=== PATIENT | female | born 1960 | race Caucasian/White ===

== ENCOUNTER 2018-05-17 15:33 | Emergency (ER) | payer OTHER ==
[~2018-05-17] VITALS: Ht 152.4 cm; Wt 70.8 kg
[2018-05-17] MEDS ORDERED: NKM (15:42)
--- NOTE | 2018-05-17 15:47 | NUR ---
ED Nurse Note: Patient walked into ED patient was crossing the street today and fell down accidentally, patient reports falling down on her right side, right hand, patient reports strangling her right ankle, pain radiates to her right thigh, and right hand pain about 1 hour ago after the incident. patient denies head trauma or LOC. patient is alert awake x4, ambulatory with assist.
[2018-05-17] MEDS ORDERED: Bacitracin Oint UD TOPIC ONE (16:15)
[2018-05-17] MEDS ORDERED: Tetanus/Diptheria/Pertussis IM ONE (16:15)
[2018-05-17] MEDS: Tylenol #3 tab (300mg/30mg) ORAL ONE ×2 (16:15→16:36)
--- NOTE | 2018-05-17 16:59 | Diagnostic Imaging Report ---
Indication: Right hand pain status post fall Technique: 3 views right hand Comparison: none Findings: No acute fractures. No dislocations. The joint spaces are preserved. Impression: Negative
--- NOTE | 2018-05-17 17:00 | Emergency Room Report ---
History of Present Illness General Chief Complaint: Multiple Trauma/Fall Source: Patient Present Illness HPI 58-year-old female presents to the emergency department complaining of 8 out of 10 in severity pain localized to the right ankle, right hip, and right middle finger times one hour status post mechanical trip and fall. Patient also reports abrasion with tenderness to the anterior left knee as well as an abrasion on the dorsum of the rightt hand at the knuckle of the right middle finger. She denies bleeding at this time. She states she is not sure when her last tetanus vaccination was. Patient denies hitting her head or having a loss of consciousness. Patient states that this injury occurred while at work. She reports pain exacerbation upon weight-bearing and ambulation to the right ankle. Patient reports some swelling of the right ankle. Patient denies previous injury to this extremity. She denies any relieving factors. No other complaints at this time. She denies midline neck or back pain. Denies numbness tingling or loss of sensation or gross motor movements of the extremities, incontinence of bowel or bladder. Denies CP, Palpitations, LOC, AMS, dizziness, Changes in Vision, weakness or a sudden severe headache. Allergies: Coded Allergies: No Known Allergies (Unverified , 05/17/18) Patient History Past Medical History: see triage record Past Surgical History: none Pertinent Family History: none Last Menstrual Period: 2009 Now: No Reviewed Nursing Documentation: PMH: Agreed; PSxH: Agreed Nursing Documentation-PMH Past Medical History: No Stated History Review of Systems All Other Systems: negative except mentioned in HPI Physical Exam Vital Signs Date Time Temp Pulse Resp B/P (MAP) Pulse Ox O2 Delivery O2 Flow Rate FiO2 05/17/18 15:37 98.1 74 16 133/72 100 Room Air Sp02 EP Interpretation: reviewed, normal General Appearance: no apparent distress, alert, GCS 15, non-toxic Head: normocephalic, atraumatic Eyes: bilateral eye normal inspection, bilateral eye PERRL ENT: hearing grossly normal, normal voice Neck: full range of motion, no bony tend Respiratory: lungs clear, normal breath sounds, speaking full sentences Cardiovascular #1: regular rate, rhythm Rectal: deferred Genitourinary: normal inspection Musculoskeletal: back normal, gait/station normal - compensatory, normal range of motion, tender - TTP to lateral right ankle, lateral aspect of the right foot , lateral aspect of the right hip, and proximal and distal ITP joints of the RMF , none of the joint have increased laxity, no obvious deformities or leg length discrepancy. FROM, NVI Neurologic: alert, oriented x3, responsive, motor strength/tone normal, sensory intact, speech normal, grossly normal Psychiatric: judgement/insight normal Skin: normal color, no rash, warm/dry, well hydrated, abrasions - anterior left knee, and dorsum of the knuckle of the RMF. Medical Decision Making PA Attestation Dr. Cooper is my supervising Physician whom patient management has been discussed with. Diagnostic Impression: Primary Impression: Right ankle sprain Qualified Codes: S93.401A - Sprain of unspecified ligament of right ankle, initial encounter Additional Impressions: Contusion of right hip and thigh Qualified Codes: S70.01XA - Contusion of right hip, initial encounter; S70.11XA - Contusion of right thigh, initial encounter Contusion of right hand Qualified Codes: S60.221A - Contusion of right hand, initial encounter Abrasions of multiple sites ER Course 58-year-old female presents to the emergency department complaining of 8 out of 10 in severity pain localized to the right ankle, right hip, and right middle finger times one hour status post mechanical trip and fall. Patient also reports abrasion with tenderness to the anterior left knee as well as an abrasion on the dorsum of the rightt hand at the knuckle of the right middle finger. She denies bleeding at this time. She states she is not sure when her last tetanus vaccination was. Patient denies hitting her head or having a loss of consciousness. Patient states that this injury occurred while at work. She reports pain exacerbation upon weight-bearing and ambulation to the right ankle. Patient reports some swelling of the right ankle. Patient denies previous injury to this extremity. She denies any relieving factors. No other complaints at this time. She denies midline neck or back pain. Denies numbness tingling or loss of sensation or gross motor movements of the extremities, incontinence of bowel or bladder. Denies CP, Palpitations, LOC, AMS, dizziness, Changes in Vision, weakness or a sudden severe headache. Ddx considered but are not limited to Fracture, dislocation, contusion, Sprain/ Strain/Spasm, abrasions, lacerations just to name a few. Vital signs: are WNL, pt. is afebrile H&PE are most consistent with musculoskeletal injury will perform imaging to r/ o fractures/dislocations. ORDERS: - X-ray's of the Right foot (3 views) , Right Ankle ( 3 views), Right Hip (2 views), and Right hand (3 views) - negative for fx, Dislocation, or significant soft tissue injury, per preliminary read in ED, and signed by RIANA Briscoe, my supervising physician has reviewed, and agrees with my interpretation. ED INTERVENTIONS: - Tdap vaccination administered. - Tylenol PO - [place] wrap applied by physics technician. Pt. remains neurovascularly intact. - Pt. provided with a cane and instructed on its use. DISCHARGE: At this time pt. is stable for d/c to home. Will provide printed patient care instructions, and any necessary prescriptions. Care plan and follow up instructions have been discussed with the patient prior to discharge. Other X-Ray Diagnostic Results Other X-Ray Diagnostic Results #1: X-Ray ordered: Right ankle # of Views/Limited Vs Complete: 3 View Indication: Pain EP Interpretation: Yes PA Xray: Interpretation reviewed, by supervising MD, and agrees with findings. Interpretation: no dislocation, no soft tissue swelling, no fractures Impression: No acute disease Electronically Signed by: Whitney Briscoe PA-C Other X-Ray Diagnostic Results #2: X-Ray ordered: Right Hip # of Views/Limited Vs Complete: 2 View Indication: Pain EP Interpretation: Yes PA Xray: Interpretation reviewed, by supervising MD, and agrees with findings. Interpretation: no dislocation, no soft tissue swelling, no fractures Impression: No acute disease Electronically Signed by: Whitney Briscoe PA-C Other X-Ray Diagnostic Results #3: X-Ray ordered: Right Hand # of Views/Limited Vs Complete: 3 View Indication: Pain EP Interpretation: Yes PA Xray: Interpretation reviewed, by supervising MD, and agrees with findings. Interpretation: no dislocation, no soft tissue swelling, no fractures Impression: No acute disease Electronically Signed by: Whitney Briscoe PA-C Other X-Ray Diagnostic Results #4: X-Ray ordered: Right Foot # of Views/Limited Vs Complete: 3 View Indication: Pain EP Interpretation: Yes PA Xray: Interpretation reviewed, by supervising MD, and agrees with findings. Interpretation: no dislocation, no soft tissue swelling, no fractures Impression: No acute disease Last Vital Signs Date Time Temp Pulse Resp B/P (MAP) Pulse Ox O2 Delivery O2 Flow Rate FiO2 05/17/18 15:37 98.1 74 16 133/72 100 Room Air Status: improved Disposition: HOME, SELF-CARE Condition: Stable Scripts Ibuprofen* (MOTRIN*) 600 Mg Tablet 600 MG ORAL THREE TIMES A DAY, #30 TAB 0 Refills Prov: Whitney Briscoe 05/17/18 Departure Forms: Return to Work Return to Work Date: May 18, 2018 Work Restrictions: No Heavy Lifting, No Prolonged Standing Other Restrictions: light duty x 1 week. Return to Full Activity: May 24, 2018 Patient Instructions: Ankle Sprain, [id number], Contusion, [id number] Additional Instructions: Take medications as directed. Follow up with a Primary Care Provider in 3-5 days, even if your symptoms have resolved. --Please review list of primary care clinics, if you do not already have a primary care provider Return sooner to ED if new symptoms occur, or current symptoms become worse. - Please note that this Emergency Department Report was dictated using [employer] (acquired by [employer])chief executive technology software, occasionally this can lead to erroneous entry secondary to interpretation by the dictation equipment. Whitney Briscoe May 17, 2018 17:00
--- NOTE | 2018-05-17 17:00 | Diagnostic Imaging Report ---
Indication: Pain, status post fall Technique: 3 views of the right ankle Comparison: none Findings: No acute fractures. No dislocations. The joint spaces are preserved. There is a small calcaneal spur Impression: Negative
--- NOTE | 2018-05-17 17:01 | Diagnostic Imaging Report ---
Indication: Pain, status post fall Technique: 3 views right foot Comparison: none Findings: There is hammertoe deformity of second through fifth digits. No acute fractures. No dislocations. The joint spaces are preserved. There are small plantar and calcaneal spurs Impression: No acute bony trauma
[2018-05-17] MEDS ORDERED: IBUPROFEN600 MG ORAL (17:02)
--- NOTE | 2018-05-17 17:02 | Diagnostic Imaging Report ---
Indication: Pain status post fall Technique: 2 views of the right hip Comparison: none Findings: No acute fractures. No dislocations. Joint spaces are preserved Impression: Negative
[2018-05-17 17:11] VITALS: BP 128/71
[2018-05-17 17:30] VITALS: BP 128/71
--- NOTE | 2018-05-17 17:30 | NUR ---
ER DISCHARGE NOTE: Patient is cleared to be discharged per ERMD, pt is aox4, on room air, with stable vital signs. pt was given dc and prescription instructions, pt was able to verbalize understanding, pt id band removed without complications. pt is able to ambulate with steady gait. pt took all belongings.
== END 2018-05-17 17:35 | disposition home or self-care (01) ==
LOC: EMR 17:15
DX: S93.401A Sprain of unspecified ligament of right ankle, initial encounter (principal); S70.01XA Contusion of right hip, initial encounter; S70.11XA Contusion of right thigh, initial encounter; S60.221A Contusion of right hand, initial encounter; S80.212A Abrasion, left knee, initial encounter; S60.412A Abrasion of right middle finger, initial encounter; W01.0XXA Fall on same level from slipping, tripping and stumbling without subsequent striking against object, initial encounter; Y92.9 Unspecified place or not applicable; Y99.0 Civilian activity done for income or pay; Z23 Encounter for immunization
CPT/HCPCS: 90471; 90715; 99284